=== PATIENT | male | born 1965 | race Caucasian/White ===

== ENCOUNTER 2024-08-05 16:28 | Emergency (ER) | payer SELFPAY ==
[~2024-08-05] VITALS: Ht 175.3 cm; Wt 109.0 kg
[2024-08-05 16:30] VITALS: BP 0/0; PULSE 0; RESP 0; O2SAT 0
== END 2024-08-05 16:36 ==
LOC: ER 16:28
DX: I46.9 Cardiac arrest, cause unspecified (principal)
CPT/HCPCS: 31500; 82962; 99285